=== PATIENT | male | born 1940 | race Caucasian/White ===

== ENCOUNTER 2017-07-09 05:35 | Inpatient (IN) | payer MEDICARE, BC ==
[2017-07-05 16:17] VITALS: BMI 24.2
[~2017-07-09 05:35] MED LIST: HEPARIN SODIUM,PORCINE 5,000 UNIT/ML 1 ML VIAL SQ ONE; ceFAZolin IN SWFI 2 GM/20 ML SYRINGE IVP ONE
[2017-07-09] MEDS ORDERED: MIDAZOLAM 2 MG/2 ML VIAL IV PRN (05:52)
[2017-07-09] MEDS ORDERED: ONDANSETRON 4 MG/2 ML VIAL IVP ONE ×2 (05:52→13:57)
[2017-07-09] MEDS ORDERED: fentaNYL (PF) 50 MCG/ML 2 ML AMP IV PRN (05:52)
[2017-07-09] MEDS ORDERED: DEXAMETHASONE SOD PHOSPHATE 10 MG/ML 1 ML VIAL IV ONE (05:52)
[2017-07-09] MEDS ORDERED: LIDOCAINE 1% 20 ML VIAL (10MG/ML) FOR IV START INTRADERMA ONE ×2 (07:05)
[2017-07-09] MEDS: LACTATED RINGERS 1,000 ML IV SCH (07:05)
[2017-07-09] MEDS ORDERED: NEOSTIGMINE 1 MG/ML 10 ML VIAL ONE (07:29)
[2017-07-09] MEDS ORDERED: MORPHINE SULFATE 10 MG/ML SYRINGE ONE (07:29)
[2017-07-09] MEDS ORDERED: SUCCINYLCHOLINE CHLORIDE 100 MG/5 ML SYR IV ONE (07:29)
[2017-07-09] MEDS ORDERED: ePHEDrine SULFATE/0.9% NACL/PF 50 MG/5 ML SYRINGE IV ONE (07:29)
[2017-07-09] MEDS ORDERED: LIDOCAINE 1% INJ 10MG/ML (20 ML MDV) ONE (07:29)
[2017-07-09] MEDS ORDERED: GLYCOPYRROLATE 0.2 MG/ML 2 ML VIAL ONE (07:29)
[2017-07-09] MEDS ORDERED: PROPOFOL 10 MG/ML 20 ML VIAL IV ONE (07:29)
[2017-07-09] MEDS ORDERED: MIDAZOLAM 2 MG/2 ML VIAL ONE (07:29)
[2017-07-09] MEDS ORDERED: fentaNYL (PF) 50 MCG/ML 2 ML AMP ONE (07:29)
[2017-07-09] MEDS ORDERED: ROCURONIUM BROMIDE 10 MG/ML 10 ML VIAL IV ONE (07:29)
--- NOTE | 2017-07-09 07:51 | P.DS ---
Providers Date of admission: 07/09/17 05:35 Expected date of discharge: 07/09/17 Attending physician: Evan Gordon Primary care physician: [facility] Course: On the day of admission, the patient underwent an uncomplicated bipolar TURP. The perioperative course was uncomplicated. He remained afebrile with stable vital signs. He was seen on POD #1. He was comfortable and in stable condition. The abdomen was soft, non-tender, and non-distended. The Arreola catheter was draining clear yellow urine. Procedures: TURP on 07/08/2017 Patient Condition at Discharge: Good Plan - Discharge Summary Discharge Rx Participant: Yes New Discharge Prescriptions: No Action Latanoprost Ophth [Xalatan 0.005%] 1 drops BOTH EYES DAILY Cardio-Plus Supplement 1 cap PO DAILY Discharge Medication List Cardio-Plus Supplement 1 cap PO DAILY 07/05/17 [History] Latanoprost Ophth [Xalatan 0.005%] 1 drops BOTH EYES DAILY 07/05/17 [History] Follow up Appointment(s)/Referral(s): Evan Gordon MD [STAFF PHYSICIAN] - 07/14/17 Activity/Diet/Wound Care/Special Instructions: Discharge home with Arreola catheter. Encourage oral fluid intake. Continue Levaquin until complete. Discharge Disposition: HOME SELF-CARE
[2017-07-09] MEDS ORDERED: BUPIVACAINE (PF) 0.25% 30 ML VIAL SQ ONE ×2 (08:14)
--- NOTE | 2017-07-09 12:11 | P.OP ---
Date of Procedure: 07/09/17 Preoperative Diagnosis: Adenocarcinoma of the Prostate, Clinical Stage [id number] Postoperative Diagnosis: Same Procedure(s) Performed: Robotic-assisted Laparoscopic Prostatectomy (RALP) with Bilateral Pelvic Lymphadenectomy Anesthesia: JOE Surgeon: Evan Gordon Cloth Washer Operator #1: Ankur John Estimated Blood Loss (ml): 125 IV fluids (ml): 1,150 Pathology: other (Prostate, seminal vesicles, pelvic lymph nodes) Condition: stable Disposition: PACU Indications for Procedure: The patient is a 76-year-old white male with no family history of prostate cancer. His PSA level has increased to 9.819. CARRIE reveals a nodule of the left prostatic base, and a prostate ultrasound with biopsies revealed [place] 4+3 at the left base (5%; [id number]). Treatment options are: RALP, IMRT +/- ADT. Pros and cons, along with potential risks, of each were reviewed in detail with patient and . He saw Radiation Oncology for a second opinion but elected to undergo an RALP. He understands the possible need for adjuvant therapy. Operative Findings: No evidence of extraprostatic disease Description of Procedure: The patient was taken in the operating room and placed in the dorsal lithotomy position, with his legs supported in Elías stirrups. He was carefully positioned on a beanbag for stability. The abdomen and external genitalia were prepped and draped sterilely. A Arreola catheter was inserted. The Veress needle was passed through the anterior abdominal wall immediately cephalad to the umbilicus, and insufflation was performed to a pressure of 20 mm Hg. Once insufflation was performed, the Veress needle was removed and a supraumbilical incision was made, through which a 12 mm camera port was placed. Under camera guidance, 3 8 mm robotic ports were placed, 2 on the left and one on the right. An additional 12 mm port was placed on the right lateral side for use as an respiratory therapy assistant port. A 5 mm port was placed to the right of the camera port for suction. The patient was placed in Trendelenburg position, and docking was then performed to the da [place] system utilizing a 4-arm approach. The abdomen was examined. The sigmoid colon was mobilized out of the pelvis. The peritoneum was incised lateral to the medial umbilical ligaments bilaterally , exposing the pubis. The peritoneum was then incised across the midline, allowing the bladder flap to be taken down. The endopelvic fascia was opened bilaterally, and muscular attachments from the urogenital diaphragm were swept away from the prostate. Bilateral pelvic lymphadenectomies were performed in the standard fashion. The peritoneal incisions were extended in a cephalad direction, and the vas deferens were divided bilaterally. Margins of dissection were the bifurcation of the iliac vessels proximally, the circumflex iliac vein distally, the external iliac artery laterally, and the obturator nerve medially. A combination of sharp and blunt dissection was used. Care was taken to avoid any neurovascular injury, and the use of monopolar electrocautery was avoided immediately adjacent to neurovascular structures. The lymphatic package was clipped distally. No enlarged lymph nodes were encountered. There were no complications. The vesical neck was incised transversely, down to the lumen. The Arreola catheter was brought out through the anterior vesical neck incision and was used for traction. The posterior aspect of the vesical neck was incised, such that the full-thickness of the vesical neck was divided. At this point, he was noted to have a median lobe which was dissected away from the vesical neck. The anterior layer of the Denonvilliers fascia was incised, exposing the vas deferens. Each were isolated and divided. Next, each of the seminal vesicles were dissected away from adjacent tissues, and vascular attachments were cauterized and divided. The posterior leaf of Denonvilliers fascia was incised transversely, allowing entry into the plane between the prostate and rectum. With lateral spreading, this plane was developed down to the apex. This exposed the lateral vascular pedicles bilaterally. These were clipped and divided in an antegrade fashion, down to the apex. The use of electrocautery was avoided on the right side to prevent thermal damage to the nerves. The right neurovascular bundle was preserved, whereas the left was not. The remaining apical attachments were swept away from the prostate. The dorsal venous complex was incised, as well as periurethral tissue. At this point, only the urethra remained intact. This was transected immediately distal to the prostatic apex using cold scissors. The specimen was placed within a specimen bag. The dorsal venous complex was sutured using a V-Loc suture in a running fashion. A second V-Loc suture was then used to place the Eliu stitch, incorporating the rhabdosphincter and the edge of Denonvilliers fascia. This allowed the bladder to be taken down to the urethra, leaving the vesical neck immediately adjacent to the urethra. The vesicourethral anastomosis was then performed using a V-Loc suture in a running fashion. After completing the anastomosis, an 18-[place] Arreola catheter was placed and approximately 150 mL of 0.9 normal saline were instilled into the bladder. No extravasation of irrigant from the vesicourethral anastomosis was noted. A small amount of oozing was noted from the vascular pedicles, so Surgicel was placed bilaterally. The patient was returned to the supine position. Undocking was performed, and the specimen bag sutures were passed through the camera port. After removing all the ports and allowing all of the CO2 to be released from the peritoneal cavity, the camera port incision was enlarged to allow removal of the surgical specimen. The fascia of this incision was then closed using 0 Vicryl suture in an interrupted [id number] fashion. Each of the skin incisions were then closed using 4-0 Monocryl suture in a subcuticular fashion. Marcaine was injected at each of the incision sites. Dermabond was applied to each incision. The Arreola catheter was connected to gravity drainage. All sponge and needle counts were correct. The patient tolerated the procedure well was taken to the recovery room in stable condition.
[2017-07-09] MEDS ORDERED: MORPHINE SULFATE 4MG/4ML SYRG IVP PRN (12:12)
[2017-07-09] MEDS ORDERED: ACETAMINOPHEN TAB 325 MG TAB PO PRN (12:12)
[2017-07-09] MEDS ORDERED: ONDANSETRON 4 MG/2 ML VIAL IVP PRN (12:12)
[2017-07-09] MEDS ORDERED: MAG HYDROX/AL HYDROX/SIMETH 30 ML CUP PO PRN (12:12)
[2017-07-09] MEDS: MORPHINE SULFATE 4 MG/ML SYRINGE IV ONE ×2 (13:56→14:15)
[2017-07-09] MEDS: DEXTROSE 5%-0.45% NACL 1,000 ML IV SCH ×2 (15:39→21:23)
[2017-07-09] MEDS: MORPHINE SULFATE 4 MG/0.8 ML SYRINGE (INJ) IVP PRN ×2 (15:42→18:22)
[2017-07-09] MEDS: HEPARIN SODIUM,PORCINE 5,000 UNIT/ML 1 ML VIAL SQ SCH (21:24)
[2017-07-09] MEDS: KETOROLAC 30 MG/ML 1 ML VIAL IVP PRN (23:34)
[2017-07-10] MEDS: DEXTROSE 5%-0.45% NACL 1,000 ML IV SCH (05:17)
[2017-07-10] MEDS: KETOROLAC 30 MG/ML 1 ML VIAL IVP PRN (05:30)
[2017-07-10 08:05] VITALS: BP 117/64; PULSE 92; RESP 18; TEMP 98.3
[2017-07-10] MEDS: HEPARIN SODIUM,PORCINE 5,000 UNIT/ML 1 ML VIAL SQ SCH (08:16)
--- NOTE | 2017-07-10 08:41 | P.DS ---
Providers Date of admission: 07/09/17 05:35 Expected date of discharge: 07/10/17 Attending physician: Evan Gordon Primary care physician: [facility] Course: The patient is a 76-year-old male with a history of prostate cancer who was admitted for the purpose of robotic-assisted laparoscopic prostatectomy. The patient underwent the procedure without incident on the date of admission. He remained comfortable and his urine has remained clear. He is tolerating a diet and is ambulatory. He was discharged on the first day postop. Procedures: Robotic-assisted laparoscopic prostatectomy 07/09/2017 Plan - Discharge Summary Discharge Rx Participant: Yes New Discharge Prescriptions: New Ciprofloxacin HCl [Cipro] 250 mg PO Q12HR #6 tablet Hydrocodone/Acetaminophen [[place] 5-325] 1 - 2 each PO Q4HR PRN #15 tab PRN Reason: Pain No Action Latanoprost Ophth [Xalatan 0.005%] 1 drops BOTH EYES DAILY Cardio-Plus Supplement 1 cap PO DAILY Discharge Medication List Cardio-Plus Supplement 1 cap PO DAILY 07/05/17 [History] Latanoprost Ophth [Xalatan 0.005%] 1 drops BOTH EYES DAILY 07/05/17 [History] Ciprofloxacin HCl [Cipro] 250 mg PO Q12HR #6 tablet 07/09/17 [Rx] Hydrocodone/Acetaminophen [[place] 5-325] 1 - 2 each PO Q4HR PRN #15 tab 07/09/17 [Rx] Follow up Appointment(s)/Referral(s): Evan Gordon MD [STAFF PHYSICIAN] - 07/19/17 2:00 pm Activity/Diet/Wound Care/Special Instructions: Discharge home with Arreola catheter. No lifting, driving, or strenuous activity. Encourage oral fluid intake. Instruct patient to begin taking ciprofloxacin one day prior to his follow-up appointment. Discharge Disposition: HOME SELF-CARE Pending Studies Pending Results: Pathology report is pending
[2017-07-10] MEDS ORDERED: LATANOPROST 0.005% OPHTH DROPS 2.5 ML BTL BOTH EYES SCH (09:00)
== END 2017-07-10 11:35 | disposition home or self-care (01) | DRG 708 ==
LOC: 2ORMAIN 05:35 → 3SUR 12:17
PROVIDERS: ADMIT Urology; ATTEND Urology
PROC: 8E0W4CZ Robotic Assisted Procedure of Trunk Region, Percutaneous Endoscopic Approach (ICD-10-PCS; 2017-07-09)
PROC: 07BC4ZZ Excision of Pelvis Lymphatic, Percutaneous Endoscopic Approach (ICD-10-PCS; 2017-07-09)
PROC: 0VT04ZZ Resection of Prostate, Percutaneous Endoscopic Approach (ICD-10-PCS; principal; 2017-07-09 07:30)
DX: C61 Malignant neoplasm of prostate (principal); E78.00 Pure hypercholesterolemia, unspecified; K21.9 Gastro-esophageal reflux disease without esophagitis; N40.1 Benign prostatic hyperplasia with lower urinary tract symptoms; R35.0 Frequency of micturition; R39.12 Poor urinary stream; K64.9 Unspecified hemorrhoids; Z88.2 Allergy status to sulfonamides; Z91.041 Radiographic dye allergy status; Z98.1 Arthrodesis status; Z80.52 Family history of malignant neoplasm of bladder; Z82.3 Family history of stroke
CPT/HCPCS: 86850; 86900; 86901

== ENCOUNTER → 2017-08-05 | Outpatient (CLI) | payer MEDICARE, BC | LOC: LABWHC1 10:57 | PROVIDERS: ATTEND Urology | DX: C61 Malignant neoplasm of prostate (principal) | CPT/HCPCS: 36415; 84153 ==

== ENCOUNTER → 2017-10-28 | Outpatient (CLI) | payer MEDICARE, BC | END | disposition home or self-care (01) | LOC: LABWHC1 14:15 | PROVIDERS: ATTEND Urology | DX: C61 Malignant neoplasm of prostate (principal) | CPT/HCPCS: 36415; 84153 ==

== ENCOUNTER → 2018-01-25 | Outpatient (CLI) | payer MEDICARE, BC | END | disposition home or self-care (01) | LOC: LABWHC1 08:05 | PROVIDERS: ATTEND Urology | DX: C61 Malignant neoplasm of prostate (principal) | CPT/HCPCS: 36415; 84153 ==

== ENCOUNTER → 2018-04-20 | Outpatient (CLI) | payer MEDICARE, BC | END | disposition home or self-care (01) | LOC: LABWHC1 12:56 | PROVIDERS: ATTEND Urology | DX: C61 Malignant neoplasm of prostate (principal) | CPT/HCPCS: 36415; 84153 ==

== ENCOUNTER → 2018-07-19 | Outpatient (CLI) | payer MEDICARE, BC | END | disposition home or self-care (01) | LOC: LABWHC1 13:41 | PROVIDERS: ATTEND Urology | DX: C61 Malignant neoplasm of prostate (principal) | CPT/HCPCS: 36415; 84153 ==

== ENCOUNTER → 2018-11-17 | Outpatient (CLI) | payer MEDICARE, BC | END | disposition home or self-care (01) | LOC: LABWHC1 07:52 | PROVIDERS: ATTEND Urology | DX: C61 Malignant neoplasm of prostate (principal) | CPT/HCPCS: 36415; 84153 ==

== ENCOUNTER → 2019-03-10 | Outpatient (CLI) | payer MEDICARE, BC | END | disposition home or self-care (01) | LOC: LABWHC1 08:21 | PROVIDERS: ATTEND Urology | DX: C61 Malignant neoplasm of prostate (principal) | CPT/HCPCS: 36415; 84153 ==

== ENCOUNTER → 2019-08-04 | Outpatient (CLI) | payer MEDICARE, BC | END | disposition home or self-care (01) | LOC: LABWHC1 08:14 | PROVIDERS: ATTEND Urology | DX: R97.20 Elevated prostate specific antigen [PSA] (principal) | CPT/HCPCS: 36415; 84153 ==

== ENCOUNTER → 2020-08-12 | Outpatient (CLI) | payer MEDICARE, BC | END | disposition home or self-care (01) | LOC: LABWHC1 08:46 | PROVIDERS: ATTEND Urology | DX: C61 Malignant neoplasm of prostate (principal) | CPT/HCPCS: 36415; 84153 ==

== ENCOUNTER → 2021-07-17 | Outpatient (CLI) | payer MEDICARE, BC | END | disposition home or self-care (01) | LOC: LABWHC1 08:06 | PROVIDERS: ATTEND Urology | DX: C61 Malignant neoplasm of prostate (principal) | CPT/HCPCS: 36415; 84153 ==

== ENCOUNTER → 2022-07-07 | Outpatient (CLI) | payer MEDICARE, BC | END | disposition home or self-care (01) | LOC: LABWHC1 08:17 | PROVIDERS: ATTEND Urology | DX: C61 Malignant neoplasm of prostate (principal) | CPT/HCPCS: 36415; 84153 ==

== ENCOUNTER → 2022-12-30 | Outpatient (CLI) | payer MEDICARE, BC | END | disposition home or self-care (01) | LOC: LABWHC1 07:11 | PROVIDERS: ATTEND Urology | DX: C61 Malignant neoplasm of prostate (principal) | CPT/HCPCS: 36415; 84153 ==

== ENCOUNTER → 2023-07-22 | Outpatient (CLI) | payer MEDICARE, BC | END | disposition home or self-care (01) | LOC: LABWHC1 07:28 | PROVIDERS: ATTEND Urology | DX: C61 Malignant neoplasm of prostate (principal) | CPT/HCPCS: 36415; 84153 ==

== ENCOUNTER → 2024-02-09 | Outpatient (CLI) | payer MEDICARE, BC | END | disposition home or self-care (01) | LOC: LABWHC1 07:54 | PROVIDERS: ATTEND Radiology Radiation Oncology | DX: C61 Malignant neoplasm of prostate (principal); R97.21 Rising PSA following treatment for malignant neoplasm of prostate | CPT/HCPCS: 36415; 84153 ==

== ENCOUNTER → 2024-06-05 | Outpatient (CLI) | payer MEDICARE, BC | END | disposition home or self-care (01) | LOC: LABWHC1 10:57 | PROVIDERS: ATTEND Radiology Radiation Oncology | DX: C61 Malignant neoplasm of prostate (principal); R97.21 Rising PSA following treatment for malignant neoplasm of prostate | CPT/HCPCS: 36415; 84153 ==

== ENCOUNTER → 2024-07-14 | Outpatient (CLI) | payer MEDICARE, BC ==
--- NOTE | 2024-07-15 19:45 | PE ---
EXAMINATION TYPE: PET CT fusion skull to thigh DATE OF EXAM: 07/14/2024 CLINICAL INDICATION:Male, 83 years old with history of prostate cancer.; TECHNIQUE: Following the intravenous administration of 5.59 mCi of Ga-68 Illuccix (PSMA), whole bod y images are performed from the skull base to the Mid thigh. Images are reviewed on the computer in the coronal, axial, and sagittal planes. Reconstructed rotating images are created on [employer] and reviewed on the computer. A non-contrast CT is performed in conjunction with the PET scan. CT DLP: 549 mGycm, Automated exposure control for dose reduction was used. COMPARISON: CT None, PET/CT None, MRI: None FINDINGS: Mediastinal SUV mean is 1.2. Hepatic parenchyma SUV mean is 4.4. SKULL BASE AND NECK: No suspicious radiotracer activity. CHEST, MEDIASTINUM, AND HILAR REGION: No suspicious radiotracer activity. ABDOMEN AND PELVIS: No suspicious radiotracer activity. The prostate gland is surgically absent. There is some focal uptake within the right pelvis thought t o be within a vessel of the right external iliac vein max SUV 3.6. No uptake is seen within the prost ate surgical bed. MUSCULOSKELETAL STRUCTURES: No suspicious radiotracer activity. OTHER CT: Atherosclerosis of the arterial vasculature. Moderate coronary artery atherosclerosis. [place] pelvic renal cysts bilaterally. Follow-up recommended for these. Left fat-containing inguinal hernia. IMPRESSION: Surgically absent prostate gland. There is no definitive enlarged lymph node with increased uptake. C ontinued surveillance recommended as rising PSA. Consider repeat exam in 6 months. [facility], , 07/15/2024 7:43 PM
== END | disposition home or self-care (01) ==
LOC: RADPETMAIN 07:28
PROVIDERS: ATTEND Radiology Radiation Oncology
DX: C61 Malignant neoplasm of prostate (principal); R97.21 Rising PSA following treatment for malignant neoplasm of prostate; Z90.79 Acquired absence of other genital organ(s)
CPT/HCPCS: 78815; A9596